=== PATIENT | female | born 1955 | race Caucasian/White ===

== ENCOUNTER 2019-04-12 06:26 | Emergency (ER) | payer OTHER ==
[~2019-04-12] VITALS: Ht 160 cm; Wt 86.4 kg
[~2019-04-12 06:26] MED LIST: AZIT250T PO; BENZ-6 PO
[2019-04-12 06:29] VITALS: Ht 160 cm; Wt 86.4 kg
[2019-04-12] MEDS ORDERED: ALBUTEROL 0.083% (NEB) 2.5 MG/3 ML AMP NEB STA (07:01)
[2019-04-12] MEDS ORDERED: DEXAMETHASONE 10 MG/ML 1 ML INJ IM STA (07:01)
[2019-04-12] MEDS ORDERED: IPRATROPIUM (NEB) 0.5 MG/2.5 ML AMP NEB STA (07:01)
[2019-04-12 07:32] VITALS: BP 137/76; PULSE 73; RESP 17
--- NOTE | 2019-04-12 08:29 | ERD ---
ER Documentation Chief Complaint Chief Complaint asthma and cough HPI Patient is a 53-year-old female, past medical history of vascular presents to the ER for concerns of cough and wheezing for the last month. Patient states her cough is gotten worse for the last week. Cough is productive with occasional yellow sputum production. Patient denies any chest pain, shortness breath, fevers, chills, nausea, vomiting or LOC. She states she is been using her albuterol inhaler and fluticasone with minimal alleviation of symptoms. No recent travel. ROS All systems reviewed and are negative except as per history of present illness. Medications Home Meds Active Scripts Benzonatate* (Tessalon Perle*) 100 Mg Capsule, 100 MG PO Q8H PRN for COUGH, #30 CAP Prov:KEVIN RODAS PA-C 04/12/19 Azithromycin* (Zithromax*) 250 Mg Tablet, 250 MG PO .ZPACK DIRECTED, #6 TAB TAKE 500 MG (2 TABS) THE FIRST DAY THEN 250 MG (1 TAB) DAYS 2-5 Prov:KEVIN RODAS PA-C 04/12/19 Allergies Allergies: Coded Allergies: No Known Allergy (Unverified , 04/12/19) PMhx/Soc Hx Neurological Disorder: No Hx Cardiac Disorders: No Hx Psychiatric Problems: No Hx Miscellaneous Medical Probl: No Hx Alcohol Use: No Hx Substance Use: No Hx Tobacco Use: No FmHx Family History: No diabetes Physical Exam Vitals Vital Signs Date Temp Pulse Resp B/P (MAP) Pulse Ox O2 O2 Flow FiO2 Time Delivery Rate 04/12/19 73 17 137/76 98 Room Air 07:32 (96) 04/12/19 80 18 97 21 07:24 04/12/19 97.0 80 18 174/98 97 06:29 (123) Physical Exam GENERAL: Well-developed, well-nourished female. Appears in no acute distress. Speaking in full sentences. HEAD: Normocephalic, atraumatic. EYES: Pupils are equally reactive bilaterally. EOMs grossly intact. No conj unctival erythema. ENT: Moist mucous membranes. No uvula deviation. No kissing tonsils. NECK: Supple. No meningismus. Normal range of motion of the neck. LUNGS: Mild bilateral expiratory wheezing noted. No abdominal retractions, nasal flaring, no tripoding. HEART: Regular rate and rhythm. No murmurs, rubs or gallops. Equal pulses in bilateral upper extremities. EXTREMITIES: Equal pulses bilaterally. No peripheral clubbing, cyanosis or edema. No unilateral leg swelling. NEUROLOGIC: Alert and oriented. Moving all four extremities without any difficulty. Normal speech. Steady gait. SKIN: Normal color. Warm and dry. No rashes or lesions. Results 24 hrs Current Medications Medications Dose Sig/Claritza Start Time Status Last (Trade) Ordered Route PRN Stop Time Admin Dose Reason Admin Albuterol 5 mg ONCE STAT 04/12/19 DC 04/12/19 (Proventil NEB 07:01 07:34 0.083% (Neb)) 04/12/19 07:02 Ipratropium 0.5 mg ONCE STAT 04/12/19 DC 04/12/19 Hackberry NEB 07:01 07:34 (Atrovent 04/12/19 07:02 0.02% (Neb)) 10 mg ONCE STAT 04/12/19 DC 04/12/19 Dexamethasone IM 07:01 07:07 (Decadron) 04/12/19 07:02 Procedures/MDM MEDICAL DECISION MAKING: Patient is a 63-year-old female with past medical history of asthma presents the ER for concerns of wheezing and cough for the last month. Patient was afebrile. Patient was not hypoxic. Patient denied recent travel. Cardiac exam was normal. Lung exam did reveal bilateral expiratory wheezing. Patient was given a breathing treatment as well as Decadron. Upon reexamination, patient breath sounds. Chest x-ray was normal limits. See formal report above. At this time for the patient presentation was consistent with bronchitis with wheezing. Low suspicion for acute coronary syndrome, pneumothorax, pneumonia, TB, influenza, pertussis, GERD, allergic rhinitis. She was nontoxic, [id number] prior to discharge. PRESCRIPTIONS: Azithromycin, Tessalon Perles Patient advised to continue using albuterol inhaler as needed. DISCHARGE: At this time, patient is stable for discharge and outpatient management. I have instructed the patient to follow-up with his/her primary care physician in 1-2 days. If symptoms persist, patient may need to see a specialist for further examinations and testing. I have instructed the patient to promptly return to the ER at any time for any new or worsening symptoms including increased increased pain, fever, nausea, vomiting, numbness, shortness of breath, weakn ess, ongoing wheezing, retractions or LOC. The patient and/or family expressed understanding of and agreement with this plan. All questions were answered. Home care instructions were provided. Patients blood pressure was elevated (>120/80) but appears stable without evidence of hypertensive emergency, hypertensive urgency or end-organ failure. I had discussion with the patient about the risks of hypertension. I have advised the patient to follow up with his/her primary care physician for outpatient mon itoring and treatment for hypertension in 2-3 days. I have instructed the patient to return to the ER for any new or worsening symptoms including chest pain, shortness of breath, headache, blurred vision, confusion, nausea, vomiting or LOC. Disclaimer: Inadvertent spelling and grammatical errors are likely due to EHR/dictation software use and do not reflect on the overall quality of patient care. Also, please note that the electronic time recorded on this note does not necessarily reflect the actual time of the patient encounter. Departure Diagnosis: Primary Impression: Bronchitis Additional Impression: Asthma with acute exacerbation Asthma severity: unspecified severity Asthma persistence: unspecified Qualified Codes: J45.901 - Unspecified asthma with (acute) exacerbation Condition: Fair Patient Instructions: Bronchitis With Wheezing (Adult) Referrals: COMM[facility] CLIN[facility] YOU HAVE RECEIVED A MEDICAL SCREENING EXAM AND THE RESULTS INDICATE THAT YOU DO NOT HAVE A CONDITION THAT REQUIRES URGENT TREATMENT IN THE EMERGENCY DEPARTMENT. FURTHER EVALUATION AND TREATMENT OF YOUR CONDITION CAN WAIT UNTIL YOU ARE SEEN IN YOUR DOCTORS OFFICE WITHIN THE NEXT 1-2 DAYS. IT IS YOUR RESPONSIBILITY TO MAKE AN APPOINTMENT FOR FOLOW-UP CARE. IF YOU HAVE A PRIMARY DOCTOR --you should call your primary doctor and schedule an appointment IF YOU DO NOT HAVE A PRIMARY DOCTOR YOU CAN CALL OUR PHYSICIAN REFERRAL HOTLINE AT IF YOU CAN NOT AFFORD TO SEE A PHYSICIAN YOU CAN CHOSE FROM THE FOLLOWING [facility] [address] [facility] [address] [facility] [address] [facility] [address] [facility] [address] [facility] [address] [facility] [facility] YOU HAVE RECEIVED A MEDICAL SCREENING EXAM AND THE RESULTS INDICATE THAT YOU DO NOT HAVE A CONDITION THAT REQUIRES URGENT TREATMENT IN THE EMERGENCY DEPARTMENT. FURTHER EVALUATION AND TREATMENT OF YOUR CONDITION CAN WAIT UNTIL YOU ARE SEEN IN YOUR DOCTORS OFFICE WITHIN THE NEXT 1-2 DAYS. IT IS YOUR RESPONSIBILITY TO MAKE AN APPOINTMENT FOR FOLOW-UP CARE. IF YOU HAVE A PRIMARY DOCTOR --you should call your primary doctor and schedule and appointment IF YOU DO NOT HAVE A PRIMARY DOCTOR YOU CAN CALL OUR PHYSICIAN REFERRAL HOTLINE AT . IF YOU CAN NOT AFFORD TO SEE A PHYSICIAN YOU CAN CHOSE FROM THE FOLLOWING [facility] [address] [place] [address] [facility] [address] [place], [place] [id number] [place] [address] [address] [place] [address] Additional Instructions: Call your primary care doctor TOMORROW for an appointment during the next 1-2 days.See the doctor sooner or return here if your condition worsens before your appointment time. KEVIN RODAS PA-C Apr 12, 2019 08:29
== END 2019-04-12 08:28 | disposition home or self-care (01) ==
LOC: FTE 06:26
DX: J40 Bronchitis, not specified as acute or chronic (principal)
CPT/HCPCS: 71045; 94664; 96372; J1100; Z7502; Z7610